=== PATIENT | male | born 1980 ===

== ENCOUNTER 2020-07-04 11:19 | Emergency (ER) | payer OTHER ==
[~2020-07-04] VITALS: Ht 165.1 cm; Wt 82.6 kg
[2020-07-04 11:30] VITALS: TEMP 98.4
[2020-07-04 13:07] VITALS: BP 117/69
== END 2020-07-04 13:07 | disposition home or self-care (01) ==
LOC: ED 11:19 → EDBD 11:19 → ED 13:07
PROC: 0HQJXZZ Repair Left Upper Leg Skin, External Approach (ICD-10-PCS; principal; 2020-07-04)
DX: S71.112A Laceration without foreign body, left thigh, initial encounter (principal); W45.8XXA Other foreign body or object entering through skin, initial encounter; Y92.821 Forest as the place of occurrence of the external cause
CPT/HCPCS: 90471; 90715; 96372; 99283; J0690; J1885

== ENCOUNTER 2020-07-12 12:07 | Emergency (ER) | payer OTHER ==
[~2020-07-12] VITALS: Ht 165.1 cm; Wt 81.6 kg
[2020-07-12 14:05] VITALS: BP 147/83; TEMP 97.7
== END 2020-07-12 14:05 | disposition home or self-care (01) ==
LOC: EDBD 12:07 → ED 12:07
DX: Z48.02 Encounter for removal of sutures (principal)

== ENCOUNTER 2021-06-18 14:08 | Emergency (ER) | payer OTHER ==
[~2021-06-18] VITALS: Ht 157.5 cm; Wt 82.1 kg
[2021-06-18 14:13] VITALS: BP 155/83; TEMP 98.3
== END 2021-06-18 15:56 | disposition home or self-care (01) ==
LOC: ED 14:08
DX: S05.02XA Injury of conjunctiva and corneal abrasion without foreign body, left eye, initial encounter (principal); X58.XXXA Exposure to other specified factors, initial encounter; Y92.89 Other specified places as the place of occurrence of the external cause
CPT/HCPCS: 99283